=== PATIENT | male | born 1995 | race African-American/Black ===

== ENCOUNTER 2019-12-10 12:44 | Emergency (ER) | payer OTHER, SELFPAY ==
[2019-12-10 12:54] VITALS: BP 146/109; PULSE 110; RESP 20; TEMP 36.4; O2SAT 99
--- NOTE | 2019-12-10 13:10 | ED.WOUNDLAC ---
HPI - Wound/Laceration General Chief Complaint: Wound/Laceration Stated Complaint: Wound inner thigh Time Seen by Provider: 12/10/19 13:05 Source: patient Mode of arrival: ambulatory Limitations: no limitations History of Present Illness HPI narrative: This is a 24 year old male that presents to the ER for abscess to right thigh x 1 week. Reports it has increased in size. Reports pain to the area. Denies fever or drainage. Related Data Allergies Allergy/AdvReac Type Severity Reaction Status Date / Time ibuprofen AdvReac Mild Other Verified 12/10/19 12:56 Review of Systems Review of Systems: Narrative: CONSTITUTIONAL: Denies fever SKIN: Reports abscess All systems reviewed & are unremarkable except as noted in HPI and below PMFSH Past Medical History Medical History (Updated 12/10/19 @ 13:28 by Aydee Carrasco PA-C) History of diabetes mellitus Social History Social History (Updated 12/10/19 @ 13:12 by Aydee Carrasco PA-C) Smoking status: Current some day smoker Exam Narrative: Exam Narrative: GENERAL: Well-appearing, well-nourished, and in no acute distress. HEAD: Normocephalic, atraumatic. EYES: EOMI. EXTREMITIES: Normal range of motion. No edema. Right inner thigh with 1.5cm abscess with mild surrounding cellulitis SKIN: Warm, dry, no rash. NEURO: No focal deficits. Alert and oriented x3. PSYCH: Normal mood and affect Course Vital Signs Vital signs: Vital Signs Temperature 97.6 F 12/10/19 12:54 Pulse Rate 110 H 12/10/19 12:54 Respiratory Rate 12/10/19 12:54 Blood Pressure 146/109 H 12/10/19 12:54 Pulse Oximetry 99 12/10/19 12:54 Temperature 97.6 F 12/10/19 12:54 Pulse Rate 110 H 12/10/19 12:54 Respiratory Rate 12/10/19 12:54 Blood Pressure 146/109 H 12/10/19 12:54 Pulse Oximetry 99 12/10/19 12:54 Procedures Abscess I/D lower extremity: Date of Incision: 12/10/19 Time of Incision: 13:27 Side (if applicable): right Local Anesthetic: lidocaine 1% and with epi Amount of anesthesia used (mL): 3 Technique: incised with #11 blade Packing used?: none I&D Results: Pus and Blood MDM - Wound/Laceration MDM Narrative Medical decision making narrative: Patient presents to the emergency department for abscess to the right inner thigh. Small abscess with mild surrounding cellulitis. Successfully drained. Patient will be placed on oral antibiotics. He was instructed on wound care. He is to follow-up with primary care doctor. He was given warnings to return to the ER Critical Care Time Critical Care Time Critical Care Time: No Discharge Plan Discharge Clinical Impression: Abscess Patient Disposition: Home, Self-Care Condition: Stable Instructions: Antibiotic Form, Abscess (ED) Additional Instructions: Return to the emergency department if you experience fever, increasing redness and swelling of your wound, or any other symptoms that are concerning to you Take antibiotics as directed. Clean wound with mild soapy water. Apply antibiotic ointment and clean dressing at least three times daily. Warm compresses 3 times a day for 30 minutes each Follow up with your primary care in the next 2-3 days for re-evaluation Prescriptions: New cephalexin 500 mg capsule 500 mg PO Q8H 7 Days Qty: 21 RF: 0 Follow-up/Referrals: PHYSICIAN,CERTIFIED PHARMACY TECH [Primary Care Provider] -
== END 2019-12-10 13:37 | disposition home or self-care (01) ==
PROVIDERS: Emergency Provider Emergency Medicine
DX: L02.415 Cutaneous abscess of right lower limb (principal); E11.9 Type 2 diabetes mellitus without complications; F17.200 Nicotine dependence, unspecified, uncomplicated
CPT/HCPCS: 10060; 99283

== ENCOUNTER 2020-03-08 15:29 | Emergency (ER) | payer SELFPAY ==
[2020-03-08 16:35] VITALS: BP 132/84; PULSE 100; RESP 18; TEMP 36.4; O2SAT 100
--- NOTE | 2020-03-08 17:43 | ED.SKABFB ---
HPI - Skin/Abscess/Foreign Bdy General Chief complaint: Skin/Abscess/Foreign Body <VINNIE Christine Last Filed: 03/08/20 17:48> Stated complaint: boil <VINNIE Christine Last Filed: 03/08/20 17:48> Time Seen by Provider: 03/08/20 16:51 <VINNIE Christine Last Filed: 03/08/20 17:48> Source: patient <VINNIE Christine Last Filed: 03/08/20 17:48> Mode of arrival: ambulatory <VINNIE Christine Last Filed: 03/08/20 17:48> Limitations: no limitations <VINNIE Christine Last Filed: 03/08/20 17:48> History of Present Illness HPI narrative: This is a 24-year-old male that presents the emergency department for wound to the left calf. Reports he thought he may have been bitten by a spider. Reports he is up-to-date on tetanus. Reports 2 small areas of redness to the left lateral calf. Reports they are tender to palpation. Denies fever or drainage. <VINNIE Christine Last Filed: 03/08/20 17:48> Related Data Home medications: Home Medications Medication Instructions Recorded Confirmed glyburide mg 03/08/20 insulin detemir U-100 [Levemir unit SUBCUT 03/08/20 FlexTouch U-100 Insuln] insulin lispro [Humalog KwikPen unit SUBCUT 03/08/20 Insulin] <VINNIE Christine Last Filed: 03/08/20 17:48> Allergies/Adverse reactions: Allergies Allergy/AdvReac Type Severity Reaction Status Date / Time ibuprofen AdvReac Mild Other Verified 03/08/20 16:37 <VINNIE Christine Last Filed: 03/08/20 17:48> Review of Systems Review of Systems: Narrative: CONSTITUTIONAL: Denies fever SKIN: Reports erythema and edema <VINNIE Christine Last Filed: 03/08/20 17:48> All systems reviewed & are unremarkable except as noted in HPI and below <Aydee Carrasco PA-C - Last Filed: 03/08/20 17:48> PMFSH Past Medical History Medical History: Medical History (Updated 03/08/20 @ 17:47 by Aydee Carrasco PA-C) History of diabetes mellitus <Aydee Carrasco PA-C - Last Filed: 03/08/20 17:48> Social History Social History: Social History (Updated 12/10/19 @ 13:12 by Aydee Carrasco PA-C) Smoking status: Current some day smoker Gender identity (if verbalized by the patient): Male <Aydee Carrasco PA-C - Last Filed: 03/08/20 17:48> Exam Narrative: Exam Narrative: GENERAL: Well-appearing, well-nourished, and in no acute distress. HEAD: Normocephalic, atraumatic. EYES: EOMI. EXTREMITIES: Normal range of motion. Left lateral calf with 2 small (2cm) circular areas of erythema and edema, no central fluctuance to suggest abscess. No lymphangitic streaking SKIN: Warm, dry, no rash. NEURO: No focal deficits. Alert and oriented x3. PSYCH: Normal mood and affect <Aydee Carrasco PA-C - Last Filed: 03/08/20 17:48> Course Vital Signs Vital signs: Vital Signs Temperature 36.4 C L 03/08/20 16:35 Pulse Rate 100 03/08/20 16:35 Respiratory Rate 18 03/08/20 16:35 Blood Pressure 132/84 03/08/20 16:35 Pulse Oximetry 100 03/08/20 16:35 Temperature 36.8 C 03/08/20 18:01 Pulse Rate 95 03/08/20 18:01 Respiratory Rate 18 03/08/20 18:01 Blood Pressure 137/100 H 03/08/20 18:01 Pulse Oximetry 100 03/08/20 18:01 <Aydee Carrasco PA-C - Last Filed: 03/08/20 17:48> Vital Signs Temperature 36.4 C L 03/08/20 16:35 Pulse Rate 100 03/08/20 16:35 Respiratory Rate 18 03/08/20 16:35 Blood Pressure 132/84 03/08/20 16:35 Pulse Oximetry 100 03/08/20 16:35 Temperature 36.8 C 03/08/20 18:01 Pulse Rate 95 03/08/20 18:01 Respiratory Rate 18 03/08/20 18:01 Blood Pressure 137/100 H 03/08/20 18:01 Pulse Oximetry 100 03/08/20 18:01 <Yaneli Madrigal MD - Last Filed: 03/08/20 18:32> MDM - Skin/Abscess/Foreign Bdy MDM Narrative Medical decision making narrative: Patient presents emergency department for mild cellulitis to the left calf. Bonnie
[2020-03-08 18:01] VITALS: BP 137/100; PULSE 95; RESP 18; TEMP 36.8; O2SAT 100
== END 2020-03-08 18:02 | disposition home or self-care (01) ==
PROVIDERS: Emergency Provider Emergency Medicine
DX: L03.116 Cellulitis of left lower limb (principal); E11.9 Type 2 diabetes mellitus without complications; F17.200 Nicotine dependence, unspecified, uncomplicated; Z79.4 Long term (current) use of insulin; Z79.84 Long term (current) use of oral hypoglycemic drugs
CPT/HCPCS: 99283; A9270

== ENCOUNTER 2024-04-17 11:12 | Emergency (ER) | payer OTHER, SELFPAY ==
[2024-04-17 11:32] VITALS: BP 156/94; PULSE 101; RESP 20; TEMP 37.1; O2SAT 99
--- NOTE | 2024-04-17 12:13 | PC.NURSE ---
Pt declined to be seen due to wait time, ambulated out of exit in NAD w/ steady gait.
== END 2024-04-17 12:13 | disposition left against medical advice (07) ==
LOC: ANHED 12:26
DX: Z53.21 Procedure and treatment not carried out due to patient leaving prior to being seen by health care provider (principal)
CPT/HCPCS: 99199